=== PATIENT | female | born 1930 | race Two or more races ===

== ENCOUNTER 2017-02-11 20:48 | Inpatient (IN) | payer BC, MEDICARE, OTHER ==
[~2017-02-11] VITALS: Ht 162.6 cm; Wt 58.5 kg
--- NOTE | 2017-02-11 20:55 | NUR ---
86 YO FEMALE BB RA FROM HOME. PT IS ALERT TO SELF, UNABLE TO TELL ME DATE OR SITUATION. PT DS TO ER BED 6 BY EMS, PT SEEMS DROWSIE. PT GOWNED, PLACED ON LOADING UNIT OPERATOR. NOTED CONTUSION ON RIGHT EYE, PT STATES SHE FELL AND HIT HER HEAD. AWAITING ORDERS FROM PROVIDER, WILL CONTINUE TO MONITOR
--- NOTE | 2017-02-11 21:00 | NUR ---
20G RIGHT FA IV STARTED
--- NOTE | 2017-02-11 21:03 | NUR ---
EMT AT BED SIDE FOR EKG
--- NOTE | 2017-02-11 21:10 | NUR ---
TORRES CATH DONE ORDERED. URINE SAMPLE OBTAINED AND SENT TO LAB
--- NOTE | 2017-02-11 21:28 | NUR ---
CALLED CODE STROKE ER BED 6
--- NOTE | 2017-02-11 21:30 | NUR ---
nursing sup arrived with stroke robot
--- NOTE | 2017-02-11 21:31 | NUR ---
laboratory courier at bed side for blood draw
--- NOTE | 2017-02-11 21:33 | NUR ---
pt transported to ct via gurney by radiology team
[2017-02-11 21:41] LABS: BASOPHILS % (AUTO) 0.3 % (0.0-2.0); EOSINOPHILS % (AUTO) 0.2 % (0.0-6.0); HEMATOCRIT 39 % (33-45); HEMOGLOBIN 12.8 g/dL (11.5-14.8); LYMPHOCYTES # (AUTO) 0.9 /CMM (0.8-4.8); MEAN CORPUSCULAR HEMOGLOBIN 31 PG (26.0-33.0); MEAN CORPUSCULAR HGB CONC 33 g/dl (31.0-36.0); MEAN CORPUSCULAR VOLUME 92 fL (82-100); MONOCYTES # (AUTO) 0.4 /CMM (0.1-1.30); MONOCYTES % (AUTO) 3.7 % (2.0-12.0); NEUTROPHILS # (AUTO) 8.9 /CMM (1.8-8.9); NEUTROPHILS % (AUTO) 86.8 % (43.0-81.0); PLATELET COUNT (AUTO) 167 /CMM (150-450); RDW COEFFICIENT OF VARIATION 13.6 (11.5-15.0); RED BLOOD CELL COUNT(AUTO) 4.16 MIL/uL (4.0-5.2); WHITE BLOOD COUNT (AUTO) 10.2 K/uL (4.3-11.0)
--- NOTE | 2017-02-11 21:54 | NUR ---
CALLED DR SOLIZ, ON THE PHONE WITH DR CONDON.
[2017-02-11 21:55] LABS: CARBON DIOXIDE 30 mmol/L (21-32); CHLORIDE 105 mmol/L (98-107); GLUCOSE 131 mg/dL (74-106); POTASSIUM 3.4 mmol/L (3.5-5.1); SODIUM SERUM 138 mmol/L (136-145); UREA NITROGEN, BLOOD 15 mg/dL (7-18)
[2017-02-11 21:57] LABS: INR 0.92 (0.87-1.13); PROTHROMBIN TIME 9.6 SECS (9.5-12.7)
[2017-02-11] MEDS ORDERED: NICARDIPINE IN DEXTROSE,ISO-OS 200 ML IV PRN (22:00)
[2017-02-11 22:03] LABS: TROPONIN I 0.134 ng/mL (0.00-0.056)
[2017-02-11] MEDS ORDERED: NICARDIPINE IN DEXTROSE,ISO-OS 200 ML IV ONE (22:07)
--- NOTE | 2017-02-11 22:14 | NUR ---
SHAYLEE PMD PER FAMILY
--- NOTE | 2017-02-11 22:15 | NUR ---
STARTED CARDENE IN ORDERED
--- NOTE | 2017-02-11 22:16 | NUR ---
SPOKE WITH KRISTINA FROM [facility]. PER KRISTINA, THEY ARE SETTING UP TRANSPORT AND WILL CALL US BACK WITH TRANSFER INFORMATION
--- NOTE | 2017-02-11 22:21 | NUR ---
MD JUNE IS SPEAKING WITH FAMILY
--- NOTE | 2017-02-11 22:35 | NUR ---
PER MD JUNE, ADMIT TO [facility] FOR COMFORT MEASURES., WILL CONTINUE TO MONITOR
--- NOTE | 2017-02-11 22:58 | NUR ---
REPORT GIVEN TO JIM FOR REID
--- NOTE | 2017-02-11 23:12 | NUR ---
TRANSPORTED PT TO [facility] BED WITH EMT WITHOUT INCIDENT
[2017-02-11 23:30] VITALS: BP 98/64
[2017-02-11 23:45] VITALS: BP 152/77
[2017-02-11 23:56] VITALS: BP 137/62
[2017-02-12] VITALS (46 sets, daily range): BP systolic 121–177; BP diastolic 48–97
[2017-02-12] MEDS ORDERED: PHENYLEPHRINE 10 MG/ML VIAL ONE (00:43)
[2017-02-12] MEDS ORDERED: LORAZEPAM INJ 2 MG/ML VIAL IV PRN (01:00)
[2017-02-12] MEDS ORDERED: ONDANSETRON HCL/PF 4 MG/2 ML VIAL IV PRN (01:00)
[2017-02-12] MEDS ORDERED: MORPHINE SULFATE INJ 4 MG/ML DISP.SYRIN IM PRN (01:00)
--- NOTE | 2017-02-12 01:00 | NUR ---
STRAWHAT SIZER - RECEIVED PT FROM [facility] DUE TO CARDENE DRIP FOR SBP 180S, PT ARRIVED IN ICU WITH SBP IN 90S, CARDENE DRIP TURNED OFF. PT IS NOT ALERT, MUTTERING INCOMPREHENSIBLE WORDS, NIHSS DONE, SCORE 24, PT HAS LEFT SIDED PARALYSIS, BUT IS ABLE TO FOLLOW COMMANDS AND SQUEEZE HAND WITH RIGHT HAND. PT HAS CORNEAL REFLEX IN RIGHT EYE BUT NO CORNEAL REFLEX IN LEFT EYE. PT HAS EPISODE OF EMESIS X 2, PT WAS GIVEN ZOFRAN 4 MG. PT IS IN SINUS BRADYCARDIA, SBP NOW 130S-150S. PT IS ON 2L NC TOLERATING WELL O2SAT 98-100%. ABD SOFT AND NON TENDER BOWEL SOUNDS PRESENT. PT HAD A WET DIAPER WITH 210 ML MEASURED VIA DIAPER SCALE AND TORRES CATHETER INSERTED NOW. PT HAS A BRUISE ON LEFT SHOULDER AND AN ABRASION ON LEFT KNEE. PT HAS LEFT AC IV 18G AND RIGHT HAND 20G. FAMILY AT BEDSIDE DISCUSSED PT CONDITION AND PLAN OF CARE, FAMILY JUST WANTS PATIENT TO BE COMFORTABLE. WILL CONTINUE TO MONITOR
[2017-02-12] MEDS ORDERED: ONDANSETRON HCL/PF 4 MG/2 ML VIAL ONE (01:13)
[2017-02-12] MEDS ORDERED: MORPHINE SULFATE INJ 4 MG/ML DISP.SYRIN ONE (01:14)
[2017-02-12] MEDS: IV NS 0.9% 250 ML IV PRN ×2 (01:25→14:27)
--- NOTE | 2017-02-12 06:30 | NUR ---
DR JUNE AT BEDSIDE TO ASSESS PT, PT IS NOT RESPONDING OR FOLLOWING COMMANDS, MD AWARE, PT LEANING TOWARDS COMFORT CARE. NO NEW ORDERS
--- NOTE | 2017-02-12 07:42 | NUR ---
PT RECVD, VITALS ARE STABLE OFF NICARDIPINE DRIP SINCE YESTERDAY 02/10/17 AT 1430. SHE IS LETHARGIC AND RESPONSIVE TO STERNAL RUB BUT ONLY WITH SLIGHT MUMBLING, SEVERE SWELLING ON LEFT ORBITAL AREA, APPARENTLY DR. JUNE CAME EARLY THIS MORNIGN ALREADY WITH ORDERS TO TRANSFER TO [facility], HE ORDERED FOR MORPHINE IVP Q1H. PM SHIFT DID NOT STATE THERE ARE ORDERS FOR COMFORT CARE, CURRENTLY DNR/DNI.
--- NOTE | 2017-02-12 08:42 | NUR ---
CONTACTED DR. JUNE TO CLARIFY: HE SPOKE WITH THE FAMILY AND THEY WISH FOR COMFORT CARE MEASURES ONLY, NO SURGERY. GAVE TO ORDER FOR COMFORT CARE, VERIFIED WITH CHARGE NURSE
--- NOTE | 2017-02-12 11:05 | NUR ---
RN Notes: Patient transferred from ICU. Report given by Job. Patient responding to sternal rub. Vital signs WNL. Patient not responding to words or light touch. Patient unable to squeeze my hand when with right hand when asked. Left arm flaccid. No corneal reflex noted on both eyes. Right eye 3+, left eye 1+. IV site on right wrist, 20gauge, patent and intact. IV site on left AC 18 patent and intact. Light yellow urine draining in doran.
--- NOTE | 2017-02-12 11:07 | NUR ---
PT TRANSFERRED TO [facility] FOR CONTINUITY OF CARE. REPORT GIVEN TO SARATH. CALLED AND NOTIFIED PT'S FAMILY THAT PT WAS TRANSFERRED TO 201. Addendum: 02/12/17 at 1108 by JOAN MCKEON RN DISREGARD THIS NOTE, INCORRECT PT DOCUMENTATION.
--- NOTE | 2017-02-12 11:08 | NUR ---
NOTE CORRECTION: PT TRANSFERRED TO [facility] FOR CONTINUITY OF CARE. REPORT GIVEN TO SAARTH. CALLED AND NOTIFIED PT'S FAMILY THAT PT WAS TRANSFERRED TO 201.
[2017-02-12] MEDS: MORPHINE SULFATE INJ 4 MG/ML DISP.SYRIN IV PRN (12:24)
--- NOTE | 2017-02-12 18:57 | NUR ---
Closing RN Notes: Patient resting in bed. Patient responding to sternal rub. Vital signs WNL. IV site on right wrist, 20gauge, patent and intact. IV site on left AC 18 patent and intact. Light yellow urine draining in doran. During shift, patient turned and repositioned every 2 hours. Patient kept clean and dry. Will endorse to next shift
--- NOTE | 2017-02-12 19:30 | NUR ---
MS RN NOTE RECEIVED PATIENT FROM DAY SHIFT, PATIENT IS NON-RESPONSIVE, ON HOSPICE CARE, FAMILY AT BED SIDE. ORAL SUCTION PERFORMED PER FAMILY REQUEST, NO SECRETION NOTED. SRX2, BED IN LOW POSITION, CALL LIGHT WITHIN REACH, WILL CONTINUE TO MONITOR CLOSELY.
--- NOTE | 2017-02-12 20:30 | NUR ---
MS RN NOTE PATIENT'S BP WAS 156/78 PULSE 60. ATIVAN 1MG GIVEN FOR COMFORT MEASURE.
--- NOTE | 2017-02-12 20:40 | NUR ---
MS RN NOTE PER CONTRACTS REPRESENTATIVE, PATIENT'S TEMP WAS 101.6F, COOLING MEASURE INITIATED.
--- NOTE | 2017-02-13 02:00 | NUR ---
MS RN NOTE RECHECK TEMP WAS 97.7F.
--- NOTE | 2017-02-13 06:50 | NUR ---
MS RN NOTE PATIENT IS RESTING COMFORTABLY IN BED, NO ACUTE DISTRESS NOTED THROUGHOUT THE SHIFT. MORNING CARE RENDERED, TURN AND REPOSITION Q2H. WILL ENDORSE TO DAY SHIFT NURSE FOR REID.
--- NOTE | 2017-02-13 07:20 | NUR ---
Closing RN Notes: Patient resting in bed. Patient responding to deep sternal rub. IV site on right wrist, 20gauge, patent and intact. IV site on left AC 18 patent and intact. Light yellow urine draining in doran. Vital signs within normal range. Bed in lowest locked position. Call light within reach. During shift, patient turned and repositioned every 2 hours. Patient kept clean and dry. Patient kept comfortable. Patient endorsed to next shift.
[2017-02-13 08:04] VITALS: BP 153/62
--- NOTE | 2017-02-13 08:05 | NUR ---
Initial RN Notes: Patient resting in bed. Patient responding to sternal rub. IV site on right wrist, 20gauge, patent and intact. IV site on left AC 18 patent and intact. Light yellow urine draining in doran. Bed in lowest locked position. Call light within reach. Will continue to monitor.
[2017-02-13] MEDS: MORPHINE SULFATE INJ 4 MG/ML DISP.SYRIN IV PRN ×2 (08:13→16:57)
--- NOTE | 2017-02-13 13:23 | NUR ---
RN Notes: Patient resting in bed. Non-labored breathing noted. BP 118/49, SPO2 96%. Patient suctioned PRN. Patient responded with a moan. However, patient still nonverbal.
[2017-02-13 16:00] VITALS: BP 132/56
[2017-02-13 19:37] VITALS: BP 124/59
--- NOTE | 2017-02-14 07:00 | NUR ---
MS RN NOTES PT STILL LETHARGIC. NOT IN ANY DISTRESS. NO SOB NOTED. NO S/SX OF ANY PAIN OR DISCOMFORT AT THIS TIME. RESPONDS ONLY TO STERNUM RUB. WITH IV-HL PATENT & INTACT. AM CARE DONE. MONITORED ACCORDINGLY. CALL LIGHT WITHIN REACH. BED IN LOWEST POSITION. SR UP X 3 FOR SAFETY WITH BED ALARM ON. WILL ENDORSE TO NEXT SHIFT.
[2017-02-14 08:00] VITALS: BP 120/54
--- NOTE | 2017-02-14 09:15 | NUR ---
MS/conveyor feeder offbearer update Updated family as to patient's condition.
--- NOTE | 2017-02-14 10:00 | NUR ---
MS/RN Turn and reposition Patient turned and repositioned. Mouth care provided.
--- NOTE | 2017-02-14 11:07 | NUR ---
MS/RN End note Patient to be discharged from inpatient care and readmitted under hospice.
== END 2017-02-14 12:05 | disposition hospice, home (50) | DRG 64 ==
LOC: ER 20:50 → ICU 23:31 → MEDSG2 02-12 11:06
PROVIDERS: ADMIT Legal Medicine; ATTEND Legal Medicine
DX: I61.9 Nontraumatic intracerebral hemorrhage, unspecified (principal); G93.6 Cerebral edema; J44.9 Chronic obstructive pulmonary disease, unspecified; I10 Essential (primary) hypertension; F41.1 Generalized anxiety disorder; Z66 Do not resuscitate; Z51.5 Encounter for palliative care; Z87.891 Personal history of nicotine dependence
CPT/HCPCS: 36415; 70450-TC; 71010-TC; 80048-TC; 82962-TC; 84484-TC; 85025-TC; 85730-TC; 87081-TC; A4606; J2060; J2270; J2370; J2405; J7030; J7050; Z7610

== ENCOUNTER 2017-02-14 11:58 | Inpatient (IN) | payer OTHER ==
[~2017-02-14] VITALS: Ht 162.6 cm; Wt 58.5 kg
--- NOTE | 2017-02-14 12:00 | NUR ---
MS/supervisor instrument maintenance Patient discharged from med/surg and readmitted under hospice. Fully admitted, daughter updated via telephone as to patient's condition. Pictures to be taken. [employer] called for orders.
--- NOTE | 2017-02-14 12:30 | NUR ---
MS/RN S/B Dr Niño Seen by Dr Niño - new admission orders given as patient is now hospice.
--- NOTE | 2017-02-14 13:00 | NUR ---
MS/RN Orders Orders faxed to pharmacy.
[2017-02-14] MEDS ORDERED: LORAZEPAM INJ 2 MG/ML VIAL IV PRN (14:00)
[2017-02-14] MEDS: MORPHINE SULFATE PF DRIP 250 MG in IV D5W 240 ML IV PRN (14:32)
[2017-02-14] MEDS ORDERED: KEY,NONCONTROL,TO KEEP IN PYXI 1 EA MC ONE (14:36)
--- NOTE | 2017-02-14 15:08 | NUR ---
MS/RN BRIDAL SERVICE SALES AND MANAGEMENT BRIDAL SERVICE SALES AND MANAGEMENT pump infusing at 2mg/hr, may titrate to maximum of 20mg/hr.
[2017-02-14 16:00] VITALS: BP 122/61
--- NOTE | 2017-02-14 16:00 | NUR ---
MS/RN FREIGHT CAR CLEANER increased FREIGHT CAR CLEANER base rate increased to 3mg/hr as patient appears in pain. Family at bedside and in agreement with increase.
[2017-02-14] MEDS: ATROPINE SULFATE OPHTH SOLN 15 ML BOTTLE OP PRN (17:08)
--- NOTE | 2017-02-14 18:15 | NUR ---
MS/RN End note Patient turned and repositioned every 2-3 hours throughout shift, please see DEPUTY SHERIFF/INVESTIGATOR flowsheet for positioning. Skin kept clean and dry, full bed bath provided. Morphine AUTO RENTAL SUPERVISOR infusing at 3mg/hr, may increase to a maximum of 20mg/hr for comfort or distress. Family at bedside and updated as to plan of care. Time allowed for all questions and concerns to be addressed. Will endorse to shift supervisor rn.
[2017-02-14 20:00] VITALS: BP 111/57
--- NOTE | 2017-02-15 06:25 | NUR ---
MS RN NOTES MORPHINE INCREASED TO 4MG/HR FOR COMFORT. WILL CONTINUE TO MONITOR.
--- NOTE | 2017-02-15 06:50 | NUR ---
MS RN NOTES PT STILL LETHARGIC. RESPONDS ONLY TO PAINFUL STIMULI. NOT IN ANY DISTRESS. NO SOB NOTED. NO S/SX OF ANY PAIN OR DISCOMFORT AT THIS TIME. WITH MORPHINE DRIP INFUSING @ 4MG/HR. AM CARE DONE. MONITORED ACCORDINGLY. CALL LIGHT WITHIN REACH. BED IN LOWEST POSITION. SR UP X 3 WITH BED ALARM ON FOR SAFETY. WILL ENDORSE TO NEXT SHIFT.
--- NOTE | 2017-02-15 07:30 | NUR ---
MS/RN Patient received Patient received from second shift supervisor. Morphine drip infusing at 4ml/hr, appears comfortable at this time. Respirations 12 per minute. Mouth care provided, will continue to monitor and ensure comfort.
--- NOTE | 2017-02-15 08:40 | NUR ---
MS/RN Repositioned Patient turned and repositioned. Skin kept clean and dry.
--- NOTE | 2017-02-15 10:00 | NUR ---
MS/RN Morning care Morning care provided to patient.
--- NOTE | 2017-02-15 12:30 | NUR ---
MS/RN S/B Dr Niño Seen by Dr Niño - no new orders, continue with same plan of care.
[2017-02-15] MEDS: LORAZEPAM INJ 2 MG/ML VIAL IV PRN ×3 (12:56→22:16)
--- NOTE | 2017-02-15 12:59 | NUR ---
MS/RN Ativan Ativan 1mg administered as patient becoming restless. Will monitor effectiveness.
[2017-02-15] MEDS ORDERED: KEY,NONCONTROL,TO KEEP IN PYXI 1 EA MC ONE (15:06)
[2017-02-15] MEDS: MORPHINE SULFATE PF DRIP 250 MG in IV D5W 240 ML IV PRN (15:11)
[2017-02-15] MEDS: ATROPINE SULFATE OPHTH SOLN 15 ML BOTTLE OP PRN ×3 (15:12→22:15)
--- NOTE | 2017-02-15 15:30 | NUR ---
MS/RN New morphine bag New morphine bag hung as ordered, no changes to dose/rate.
--- NOTE | 2017-02-15 18:55 | NUR ---
MS/RN End note Morphine drip increased to 5mg/hr Ativan 1mg administered at 1830 Atropine two drops at 1830 Family at bedside, updated as to patient's condition.
--- NOTE | 2017-02-15 19:40 | NUR ---
MS RN NOTE: PATIENT RESTING COMFORTABLY IN BED, NO ACUTE DISTRESS NOTED, FAMILY AT BEDSIDE. BREATHING EVEN AND UNLABORED, NO SOB NOTED. IV TO LAC AND RIGHT WRIST IN PLACE, INFUSING MORPHINE DRIP AT 5MG/HR. BED LOCKED AND IN LOWEST POSITION, CALL LIGHT IN REACH. WILL CONTINUE TO MONITOR.
--- NOTE | 2017-02-15 21:42 | NUR ---
DNR/DNI,comfort care, MSO4 gtt titrated for comfort, currently on [facility] hospice care by [facility] [phone] Addendum: 02/15/17 at 2142 by RAMO DENNIS RN Amended: Links added.
--- NOTE | 2017-02-15 22:30 | NUR ---
MS RN NOTE: HOSPICE NURSE FROM [facility] CAME TO SEE PATIENT AND UPDATED ORDERS INTO THEIR CHART. NOTED THAT PATIENT WAS HAVING AGONAL BREATHING AND IF PATIENT COULD HAVE ATIVAN. ATIVAN 1MG IV AND ATROPINE 2 DROPS SUBLINGUAL GIVEN PER MD ORDER. WILL CONTINUE TO MONITOR.
--- NOTE | 2017-02-16 06:05 | NUR ---
MS RN NOTE: PATIENT RESTING COMFORTABLY IN BED, NO ACUTE DISTRESS NOTED. BREATHING EVEN AND UNLABORED, NO SOB NOTED. IV TO LAC AND RIGHT WRIST IN PLACE, INFUSING MORPHINE DRIP AT 7MG/HR. BED LOCKED AND IN LOWEST POSITION, CALL LIGHT IN REACH. WILL ENDORSE TO DAY NURSE TO CONTINUE WITH PLAN OF CARE.
--- NOTE | 2017-02-16 07:00 | NUR ---
MS RN NOTE: PATIENT NOTED THAT NO LONGER BREATHING, NO HEART RATE OR PULSE FELT, VERIFIED WITH JERROD OBRIEN RN. PATIENT [phone]. CALLED US [facility] AND INFORMED THAT PATIENT HAS , SPOKE TO [place]. CALLED ON [facility] , SPOKE TO TIARA, PATIENT NOT A LIGHTNING PROTECTION INSTALLER'S CASE, REFERENCE # [id number]. INFORMED NIGHT NURSING ASIC VERIFICATION ENGINEER, FABRICE Carpio CALLED PATIENT SISTER, AMADA AND INFORMED THAT THE PATIENT HAS PAST AWAY. SHE DOES NOT HAVE MORTUARY SET UP YET, BUT WILL BE IN TO SEE PATIENT BEFORE BRINGING PATIENT TO [facility]. PATIENT IV AND TORRES REMOVED AND BODY CLEANED AND PLACED IN BODY BAG. ID TAG PLACES ON TOE AND TO BE PLACED ON THE BAG AFTER SISTER VISITS. WILL ENDORSE TODAY NURSE TO CONTINUE FOLLOW UP, TO CALL DR. JUNE.
[2017-02-16] MEDS ORDERED: KEY,NONCONTROL,TO KEEP IN PYXI 1 EA MC ONE (07:39)
--- NOTE | 2017-02-16 07:45 | NUR ---
MS RN NOTE: PATIENT MORPHINE DRIP WASTED AND WITNESSED WITH LOREN OBRIEN. REMAINING MORPHINE DRIP OF 175 ML WASTED.
--- NOTE | 2017-02-16 08:57 | NUR ---
RN NOTES PATIENT FAMILY CAME AND PICKED UP PATIENT BELONGINGS AND SIGNED BELONGING SHEET. CALLED TO NOTIFY DR JUNE, BUT MD NOT COMPENSATION DIRECTOR. WAITING FOR DR ARECHIGA TO CALL [facility] AND INFORM OF PATIENT PASSING.
--- NOTE | 2017-02-16 09:43 | NUR ---
RN NOTES WAS ABLE TO REACH CECIL, HELICOPTER DISPATCHER, AND INFORMED HIM OF PATIENT'S PASSING. CECIL TO COME SEE THE PATIENT WITHIN THE NEXT 30 MINS.
--- NOTE | 2017-02-16 10:00 | NUR ---
RN NOTES DONAVON JACOB, ON THE FLOOR. LEACH CELL OPERATOR EXAMINED PATIENT. HE STATES HE WILL BE WRITING NOTES ON THE PATIENT AND DR WINKLER WILL BE SIGNING THE CERTIFICATE. SECURITY CALLED TO TRANSPORT BODY TO [facility] [place]. ID TAGS ALL ATTACHED TO PATIENT AND BAG.
--- NOTE | 2017-02-16 10:15 | NUR ---
RN NOTES PATIENT TRANSPORTED TO [facility] [place] WITH SECURITY.
== END 2017-02-16 10:15 | disposition expired | DRG 64 ==
LOC: HOSPICE2 11:58
PROVIDERS: ADMIT Legal Medicine; ATTEND Legal Medicine
DX: I61.9 Nontraumatic intracerebral hemorrhage, unspecified (principal); J96.90 Respiratory failure, unspecified, unspecified whether with hypoxia or hypercapnia; I46.9 Cardiac arrest, cause unspecified; Z51.5 Encounter for palliative care
CPT/HCPCS: 87081-TC; J2060; J2274; J7050; J7060